=== PATIENT | male | born 1970 | race Caucasian/White ===

== ENCOUNTER → 2023-01-14 09:01 | Outpatient (CLI) | payer OTHER, SELFPAY ==
[2023-01-14 20:14] LABS: Alanine Aminotransferase 33 IU/L (<50); Albumin Globulin Ratio 1.4 (1.0-2.8); Alkaline Phosphatase 88 U/L (38-126); Aspartate Aminotransferase 37 IU/L (17-59); BUN Creatinine Ratio 19.2 (6-22); Bilirubin Total 0.9 mg/dL (0.2-1.3); Blood Urea Nitrogen 15 mg/dL (9-20); Calcium 8.8 mg/dL (8.4-10.2); Carbon Dioxide 29 mmol/L (22-32); Chloride 105 mmol/L (98-107); Cholesterol 142 mg/dL (140-199); Estimated Glomerular Filt Rate > 60 mL/min (>60); Globulin 2.8 g/dL (1.7-4.1); Glucose 93 mg/dL (70-100); HDL Cholesterol 50 mg/dL (40-60); LDL Cholesterol Calculated 82 mg/dL (<100); Potassium 4.4 mmol/L (3.4-5.1); Sodium 140 mmol/L (137-145); Total Protein 6.8 g/dL (6.3-8.2); Triglycerides 51 mg/dL (35-150)
[2023-01-14 20:21] LABS: Add Manual Diff / Slide Review NO; Basophils Absolute Auto 0 /uL (0-100); Basophils Percent Auto 0.5 % (0-2); Eosinophils Absolute Auto 200 /uL (0-450); Eosinophils Percent Auto 3.3 % (2-4); Hemoglobin 14.1 g/dL (13.5-17.5); Lymphocytes Absolute Auto 1200 /uL (1100-4500); Lymphocytes Percent Auto 25.1 % (25-40); Mean Corpuscular HGB Conc 33.6 % (30-36); Mean Corpuscular Hemoglobin 29.8 PG (26-34); Mean Corpuscular Volume 88.9 fL (80-100); Monocytes Absolute Auto 500 /uL (0-900); Monocytes Percent Auto 9.9 % (3-14); Neutrophils Absolute Auto 3000 /uL (1500-7000); Neutrophils Percent Auto 61.2 % (50-75); Platelet Count 201 X10^3/uL (150-400); Red Blood Cell Count 4.73 X10^6/uL (4.5-5.9); Red Cell Distribution Width 13.9 % (11.6-14.8); White Blood Cell Count 4.9 X10^3/uL (4.5-11.0)
[2023-01-14 20:48] LABS: TSH w/ Reflex to FT4 0.96 uIU/mL (0.47-4.68)
[2023-01-14 22:01] LABS: HEMOLYSIS < 15 (0-50); Prostate Specific Antigen 0.628 ng/mL (0.10-4.00)
== END ==
PROVIDERS: PCP Physician Assistant Medical; Visit Provider Physician Assistant Medical
DX: Z12.5 Encounter for screening for malignant neoplasm of prostate (principal); Z13.0 Encounter for screening for diseases of the blood and blood-forming organs and certain disorders involving the immune mechanism; Z13.220 Encounter for screening for lipoid disorders; Z13.228 Encounter for screening for other metabolic disorders; Z13.29 Encounter for screening for other suspected endocrine disorder
CPT/HCPCS: 80053; 80061; 84153; 84443; 85025

== ENCOUNTER → 2023-11-11 08:59 | Outpatient (CLI) | payer OTHER, SELFPAY ==
[2023-11-11 19:30] LABS: Add Manual Diff / Slide Review NO; Basophils Absolute Auto 0 /uL (0-100); Basophils Percent Auto 0.2 % (0-2); Eosinophils Absolute Auto 100 /uL (0-450); Eosinophils Percent Auto 2.8 % (2-4); Hematocrit 42.3 % (41-53); Hemoglobin 14.3 g/dL (13.5-17.5); Lymphocytes Absolute Auto 1300 /uL (1100-4500); Lymphocytes Percent Auto 27.2 % (25-40); Mean Corpuscular HGB Conc 33.7 % (30-36); Mean Corpuscular Hemoglobin 30.3 PG (26-34); Monocytes Absolute Auto 500 /uL (0-900); Monocytes Percent Auto 10.4 % (3-14); Neutrophils Absolute Auto 2700 /uL (1500-7000); Neutrophils Percent Auto 59.4 % (50-75); Platelet Count 197 X10^3/uL (150-400); Red Cell Distribution Width 13.6 % (11.6-14.8); White Blood Cell Count 4.6 X10^3/uL (4.5-11.0)
[2023-11-11 19:35] LABS: Alanine Aminotransferase 26 IU/L (<50); Albumin 4.5 g/dL (3.5-5.0); Albumin Globulin Ratio 1.7 (1.0-2.8); Alkaline Phosphatase 82 U/L (38-126); Aspartate Aminotransferase 36 IU/L (17-59); BUN Creatinine Ratio 21.1 (6-22); Blood Urea Nitrogen 16 mg/dL (9-20); Calcium 9.6 mg/dL (8.4-10.2); Carbon Dioxide 30 mmol/L (22-32); Chloride 104 mmol/L (98-107); Cholesterol 127 mg/dL (140-199); Estimated Glomerular Filt Rate > 60 mL/min (>60); Globulin 2.7 g/dL (1.7-4.1); Glucose 87 mg/dL (70-100); HDL Cholesterol 54 mg/dL (40-60); HEMOLYSIS < 15 (0-50); LDL Cholesterol Calculated 66 mg/dL (<100); Magnesium 2.2 mg/dL (1.6-2.3); Potassium 4.3 mmol/L (3.4-5.1); Sodium 139 mmol/L (137-145); Total Protein 7.2 g/dL (6.3-8.2); Triglycerides 36 mg/dL (35-150)
[2023-11-11 20:02] LABS: TSH w/ Reflex to FT4 1.27 uIU/mL (0.47-4.68)
[2023-11-15 20:43] LABS: Fecal Immunochemical Test Negative (Negative)
== END ==
PROVIDERS: PCP Physician Assistant Medical; Visit Provider Family Medicine
DX: Z86.79 Personal history of other diseases of the circulatory system (principal); R00.1 Bradycardia, unspecified; I49.3 Ventricular premature depolarization; Z13.6 Encounter for screening for cardiovascular disorders; Z13.1 Encounter for screening for diabetes mellitus; R03.0 Elevated blood-pressure reading, without diagnosis of hypertension; Z12.5 Encounter for screening for malignant neoplasm of prostate; Z13.220 Encounter for screening for lipoid disorders; Z13.29 Encounter for screening for other suspected endocrine disorder; Z13.228 Encounter for screening for other metabolic disorders; Z13.0 Encounter for screening for diseases of the blood and blood-forming organs and certain disorders involving the immune mechanism
CPT/HCPCS: 80053; 80061; 82274; 83735; 84443; 85025

== ENCOUNTER → 2024-01-11 13:16 | Outpatient (CLI) | payer OTHER, SELFPAY ==
--- NOTE | 2024-01-11 13:17 | DI.US.S_ITS ---
PROCEDURE: US ABDOMEN LIMITED INDICATIONS: POSSIBLE INGUINAL VENTRAL HERNIAS TECHNIQUE: Real-time focused scanning was performed of the inguinal region, with image documentation. COMPARISON: None. FINDINGS: Superior to the umbilicus and to the right of midline, there is a 2.4 x 0.6 x 2.4 cm fat containing ventral hernia. At the right inguinal region, there is a 1.0 cm abdominal wall defect, through which there is a protruding 12.8 x 4.8 x 6.7 cm bowel loop. This finding is most conspicuous in the upright position with Valsalva maneuver. IMPRESSION: 1. Small, bowel and fat-containing right inguinal hernia. 2. Small fat-containing right paramidline ventral abdominal wall hernia. Dictated by: Aayush Tellez M.D. on 01/11/2024 at 15:51 Approved by: Aayush Tellez M.D. on 01/11/2024 at 15:56
== END ==
PROVIDERS: PCP Physician Assistant Medical; Referring Provider Physician Assistant Medical; Visit Provider Physician Assistant Medical
DX: K40.90 Unilateral inguinal hernia, without obstruction or gangrene, not specified as recurrent (principal); K43.9 Ventral hernia without obstruction or gangrene
CPT/HCPCS: 76705

== ENCOUNTER → 2024-01-11 13:17 | Outpatient (CLI) | payer OTHER, SELFPAY ==
--- NOTE | 2024-01-11 13:18 | DI.ECHO.S_ITS ---
[facility] : : [address] : : [place] : : [id number] : : Phone: [phone] Echocardiogram Report + + :Name: LIU HUERTA Study Date: 01/11/2024 Height: 73 in : :[facility] ReadingLocation: Weight: 230 lb : : Gender: Male BSA: 2.3 m2 : :: 1970 Age: 53 yrs BP: 146/92 mmHg: :Reason For Study: VENTRICULAR BIGEMINY : :Ordering Physician: LION, : :GABBI Performed By: Harjinder Ordaz : :Referring: GABBI ESYMOUR : + + Interpretation Summary The patient was in normal sinus rhythm during the exam. The heart rate ranged between 43-63 bpm during the study. The left ventricle is mildly dilated. The ejection fraction is estimated to be 50-55%. Diastolic function could not be accurately assessed due to contradictory data. The apex of the left ventricle and the right ventricular free wall appear hypertrabeculated. The right ventricle is mild to moderately dilated. The right ventricular systolic function is normal. Both atria are mildly dilated. There is mild to moderate mitral regurgitation. There is mild tricuspid regurgitation. The right ventricular systolic pressure is estimated to be at least 37 mmHg based on an estimated right atrial pressure of 8 mm Hg. Recommend cardiology evaluation to consider cardiac MRI. Procedure: A two-dimensional transthoracic echocardiogram with color flow and Doppler was performed. The study quality was technically adequate. There is no prior echocardiogram noted for this patient. The patient was in normal sinus rhythm during the exam. The heart rate ranged between 43-63 bpm during the study. Left Ventricle: The left ventricle is mildly dilated. The ejection fraction is estimated to be 50-55%. Diastolic function could not be accurately assessed due to contradictory data. The apex of the left ventricle and the right ventricular free wall appear hypertrabeculated. Right Ventricle: The right ventricle is mild to moderately dilated. The right ventricular systolic function is normal. Atria: Both atria are mildly dilated. The interatrial septum grossly appears intact with no obvious evidence for an atrial septal defect. Mitral Valve: The mitral valve is normal. There is no mitral valve stenosis. There is mild to moderate mitral regurgitation. Aortic Valve: The aortic valve is trileaflet. There is no aortic valve stenosis. There is trace aortic regurgitation. Tricuspid Valve: The tricuspid valve is normal. There is no tricuspid stenosis. There is mild tricuspid regurgitation. The right ventricular systolic pressure is estimated to be at least 37 mmHg based on an estimated right atrial pressure of 8 mm Hg. Pulmonic Valve: The pulmonic valve is not well visualized. There is no pulmonic valvular stenosis. There is no pulmonic valvular regurgitation. Great Vessels: The aortic root is normal size. The dimensions of the ascending aorta are normal. The IVC is dilated (diameter is greater than 2.1 cm) yet it collapses greater than 50% with a sniff. This suggests a right atrial pressure of 8 mm Hg. Pericardium/ Pleura There is no pericardial effusion. There is no pleural effusion. MMode/2D Measurements & Calculations LVIDd: 6.1 cm LVOT diam: 2.5 cm LVIDs: 4.8 cm Ao root diam: 3.2 cm FS: 20.7 % asc Aorta Diam: 3.4 cm IVSd: 0.88 cm Ao Arch Diam (Prox Trans): 2.6 cm LVPWd: 0.88 cm LV burnett. diameter/BSA (cm/m^2): 2.7 LV sys. diameter/BSA (cm/m^2): 2.1 LA A2 area: 29.0 cm2 RA long axis: 6.0 cm LA A4 area: 21.2 cm2 RA area: 25.3 cm2 LA length (vol): 5.8 cm RA vol: 91.0 ml LA vol: 90.0 ml RA : 39.8 ml/m2 LA vol index: 39.4 ml/m2 IVC diam: 2.3 cm RVD1 (basal): 4.8 cm RVD2 (mid): 4.2 cm TAPSE: 2.3 cm Doppler Measurements & Calculations Ao V2 max: 148.4 cm/sec LVOT Max Thomas: 89.7 cm/sec Ao V2 mean: 106.7 cm/sec LV V1 max P.2 mmHg Ao max P.8 mmHg LV V1 VTI: 21.4 cm Ao mean P.0 mmHg EMMA(I,D): 2.7 cm2 Ao V2 VTI: 37.4 cm EMMA(V,D): 2.9 cm2 sev ratio: 0.57 EMMA indexed to BSA (cm^2/m^2): 1.2 MV E max thomas: 65.9 cm/sec TR max thomas: 270.7 cm/sec MV A max thomas: 43.6 cm/sec TR max P.3 mmHg MV E/A: 1.5 PA V2 max: 111.8 cm/sec Med Peak E' Thomas: 9.2 cm/sec PA V2 mean: 73.8 cm/sec E/E' med: 7.1 PA mean P.5 mmHg Lat Peak E' Thomas: 12.6 cm/sec PA pr(Accel): 31.0 mmHg E/E' lat: 5.2 E/e' average: 6.2 MV dec time: 0.18 sec SV(LVOT): 102.6 ml Reading Physician:03:45 PM
== END ==
PROVIDERS: PCP Physician Assistant Medical; Referring Provider Internal Medicine Cardiovascular Disease; Visit Provider Internal Medicine Cardiovascular Disease
DX: I49.8 Other specified cardiac arrhythmias (principal); I08.1 Rheumatic disorders of both mitral and tricuspid valves
CPT/HCPCS: 76705; 93306

== ENCOUNTER 2024-06-28 11:18 | Day surgery (SDC) | payer OTHER, SELFPAY ==
--- NOTE | 2024-06-28 | PATH_ITS ---
[facility] Accession Number: [id number] No. of containers..01 Tissue . 01 Material submitted: . colon - DESCENDING COLON POLYP . 01 Diagnosis: DESCENDING COLON POLYP: Tubular adenoma. [facility] 06/30/2024 1538 Local . 01 Electronically signed: . Josh Dc MD, Pathologist NPI- [id number] . 01 Gross description: . Received in formalin with two patient identifiers and descending colon polyp, is a single lloyd and brown soft tissue fragment, 1.3 cm in greatest dimension, submitted in A1. ([id number]) /MRV 06/30/2024 1538 Local . 01 Pathologist provided ICD-10: D12.4 . 01 CPT . 868904 Specimen Comment: A courtesy copy of this report has been sent to [facility] Pathology Performed at: 01 [facility] [address] [address], [place], [place] [id number] MD Josh Dc MD Phone: [phone]
[2024-06-28 11:42] VITALS: BP 127/78; PULSE 71; RESP 18; TEMP 36.7; O2SAT 99
--- NOTE | 2024-06-28 12:20 | P.HP_ITS ---
History of Present Illness History of Present Illness Date Patient Seen: 06/28/24 Time Patient Seen: 12:20 Chief complaint: Colonoscopy Narrative: 53-year-old white male, otherwise healthy, presents for initial screening colonoscopy. No blood in stool, no changes in bowel habits or unexplained weight loss. [facility] Medical History Incarcerated ventral hernia Incarcerated right inguinal hernia Wears glasses Seborrheic dermatitis (~1999) Eczema (~2015) AC separation, type 3 (~2004) ADHD (~1971) Tinnitus (~1980) Atrial fibrillation (~2002) Social History Smoking Status: Current some day smoker alcohol intake: current Meds Home Medications and Allergies Home Medications Medication Instructions Recorded Confirmed Type No Known Home Medications 06/28/24 06/28/24 History Allergies Allergy/AdvReac Type Severity Reaction Status Date / Time No Known Drug Allergies Allergy Verified 06/28/24 11:36 Review of Systems Review of Systems ROS: Yes All systems reviewed with the patient and are negative except as otherwise documented Exam Vital Signs (past 8 hours): - 06/28/24 11:42 Temperature 98.0 F Pulse Rate 71 Respiratory Rate 18 Blood Pressure 127/78 Pulse Oximetry 99 Oxygen Delivery Method Room Air Oxygen Delivery Method Room Air Narrative Exam Narrative: Gen: NAD, sitting comfortably in bed, appears well HEENT: Sclera are anicteric, head is normocephalic and atraumatic, trachea is midline. CV: RRR, no JVD Resp: clear to auscultation bilaterally, equal chest wall movement bilaterally Abd: soft, nontender, normoactive bowel sounds. Reducible right inguinal hernia, reducible ventral hernia Ext: no edema, full range of motion Neuro: Cranial nerves II-XII grossly intact, no focal deficits Skin: No erythema or ecchymosis Assessment & Plan Assessment and plan (1) Colon cancer screening: Status: Acute (2) Incarcerated right inguinal hernia: Status: Acute (3) Incarcerated ventral hernia: Status: Acute Assessment & Plan narrative: Patient presents for initial screening colonoscopy Risks, benefits, alternatives to colonoscopy explained, including but not limited to bowel perforation or other serious complication requiring surgery at less than 1 in 5000 colonoscopies, abdominal pain, cramping or bleeding and less than 1% of colonoscopies, and the chances that we find a diagnosis that would require further intervention of about 2%. Patient agrees to proceed. Plan for elective repair of right inguinal hernia and ventral hernia with mesh within the coming month. To be scheduled. Time-Based Coding :: [TOTAL MINUTES] spent with patient and on the chart (including review of chart, obtaining history, exam, reviewing outside data, placing orders, documenting exam and treatment plan, and counseling patient) on [DATE].
--- NOTE | 2024-06-28 12:44 | PM.OP.COLON ---
Operative Date/Time/Diagnoses Date of procedure: 06/28/24 Time of procedure: 12:44 Pre-op diagnosis: Colon screening Post-op diagnosis: same (Descending colon polyp) Procedure & Clinicians Study performed: Colonoscopy with snare polypectomy Same procedure as scheduled: Yes Indications: Colon screening Surgeon: Amador Sosa Procedure Notes SCOAP/Timeout: Performed Procedure in detail: Time-out was performed. Mac was induced. Patient was placed in left lateral decubitus position. The perineum was inspected without any gross abnormality. Lubricated pediatric colonoscope was inserted and advanced to the cecum. The terminal ileum was intubated. The colonoscope was withdrawn slowly inspecting the circumference of the colon. A small, 5 mm descending colon polyp was removed with cold snare polypectomy. This was retrieved completely. Very small polyps may have been missed, prep quality was adequate. Retroflexed view of the rectum showed small, non prolapsed nonbleeding internal hemorrhoids. The scope was withdrawn the patient was taken to PACU in good condition. Scope withdrawal time: 8 Sedation minutes: 12 Findings: polyp(s) Specimen(s): other (Descending colon polyp) Complications: none Impression: Descending colon polyp Post-procedure Recommendations: Colonoscopy in 5 years (Next colonoscopy in 5-7 years) Plan for aftercare: Home Follow up: as needed Disposition: PACU
[2024-06-28 12:46] VITALS: BP 96/57; PULSE 61; RESP 12; TEMP 36.3; O2SAT 96
[2024-06-28 12:51] VITALS: BP 102/56; PULSE 54; RESP 13; O2SAT 96
[2024-06-28 12:56] VITALS: BP 106/66; PULSE 63; RESP 11; O2SAT 96
[2024-06-28 13:05] VITALS: BP 112/68; PULSE 68; RESP 11; TEMP 36.3; O2SAT 98
== END 2024-06-28 13:30 | disposition home or self-care (01) ==
PROVIDERS: PCP Physician Assistant Medical; Referring Provider Surgery; Visit Provider Surgery
PROC: 0DJD8ZZ Inspection of Lower Intestinal Tract, Via Natural or Artificial Opening Endoscopic (ICD-10-PCS; CPT 45378; principal; 2024-06-28 12:30)
DX: Z12.11 Encounter for screening for malignant neoplasm of colon (principal); K64.8 Other hemorrhoids; D12.4 Benign neoplasm of descending colon
CPT/HCPCS: 45385; J2704

== ENCOUNTER → 2024-10-11 09:04 | Outpatient (CLI) | payer OTHER, SELFPAY ==
[2024-10-11 18:51] LABS: Hematocrit 46.6 % (41-53); Hemoglobin 15.5 g/dL (13.5-17.5); Mean Corpuscular HGB Conc 33.2 % (30-36); Mean Corpuscular Hemoglobin 30.2 PG (26-34); Mean Corpuscular Volume 90.9 fL (80-100); Platelet Count 193 X10^3/uL (150-400); Red Blood Cell Count 5.13 X10^6/uL (4.5-5.9); Red Cell Distribution Width 14.4 % (11.6-14.8)
[2024-10-11 19:16] LABS: Alanine Aminotransferase 39 IU/L (<50); Albumin 4.6 g/dL (3.5-5.0); Albumin Globulin Ratio 1.8 (1.0-2.8); Alkaline Phosphatase 68 U/L (38-126); Aspartate Aminotransferase 43 IU/L (17-59); BUN Creatinine Ratio 20.2 (6-22); Blood Urea Nitrogen 17 mg/dL (9-20); Calcium 9.5 mg/dL (8.4-10.2); Carbon Dioxide 29 mmol/L (22-32); Chloride 104 mmol/L (98-107); Cholesterol 167 mg/dL (140-199); Estimated Glomerular Filt Rate > 60 mL/min (>60); Globulin 2.6 g/dL (1.7-4.1); Glucose 94 mg/dL (70-100); HDL Cholesterol 53 mg/dL (40-60); HEMOLYSIS 17 (0-50); LDL Cholesterol Calculated 96 mg/dL (<100); Potassium 4.7 mmol/L (3.4-5.1); Sodium 141 mmol/L (137-145); Total Protein 7.2 g/dL (6.3-8.2); Triglycerides 92 mg/dL (35-150)
[2024-10-11 19:47] LABS: Prostate Specific Antigen Scrn 0.688 ng/mL (0.1-4.0)
== END ==
PROVIDERS: PCP Physician Assistant Medical; Visit Provider Physician Assistant Medical
DX: Z13.1 Encounter for screening for diabetes mellitus (principal); Z13.6 Encounter for screening for cardiovascular disorders; R39.11 Hesitancy of micturition; Z12.5 Encounter for screening for malignant neoplasm of prostate
CPT/HCPCS: 80053; 80061; 85027; G0103

== ENCOUNTER → 2025-01-09 09:04 | Outpatient (CLI) | payer OTHER, SELFPAY ==
[2025-01-09 21:06] LABS: Add Manual Diff / Slide Review NO; Hematocrit 44.0 % (41-53); Hemoglobin 14.8 g/dL (13.5-17.5); Lymphocytes Absolute Auto 1200 /uL (1100-4500); Mean Corpuscular HGB Conc 33.5 % (30-36); Mean Corpuscular Hemoglobin 30.5 PG (26-34); Mean Corpuscular Volume 90.9 fL (80-100); Platelet Count 189 X10^3/uL (150-400)
== END ==
PROVIDERS: PCP Physician Assistant Medical; Visit Provider Physician Assistant Medical
DX: D72.9 Disorder of white blood cells, unspecified (principal)
CPT/HCPCS: 85025

== ENCOUNTER → 2025-06-30 13:20 | Outpatient (CLI) | payer OTHER, SELFPAY ==
--- NOTE | 2025-06-30 13:21 | DI.MRI.S_ITS ---
PROCEDURE: MR LUMBAR SPINE WO CON INDICATIONS: increasing numbness in LE L>R TECHNIQUE: Noncontrast sagittal T1 spin echo and T2 fast echo, sagittal STIR, and T2 fast spin echo through the lumbar spine. In cases with scoliosis, additional coronal T2 fast spin echo may be performed. COMPARISON: [facility] ([place]), CR, XR LUMBAR SPINE 2- 3V, 05/23/2025, 15:37. FINDINGS: Image quality: Excellent. Alignment and Curvature: There is normal bony alignment. Bone Marrow: Marrow is of normal overall signal. No acute vertebral body compression fractures. Spinal Cord: Conus medullaris terminates at the L1 level. Visualized cord demonstrates normal signal and size. Paraspinous Soft Tissues: No paravertebral masses. T12-L1: There is near complete loss of disc height and extensive disc desiccation. Diffuse disc bulge and bilateral facet arthrosis. No significant central canal stenosis or neural foraminal narrowing. L1-L2: Bilateral facet arthrosis is seen. No significant disc bulge, canal stenosis or neural foraminal narrowing. L2-L3: There is disc desiccation. Diffuse disc bulge and bilateral facet arthrosis with mild central canal stenosis and mild bilateral neural foraminal narrowing. L3-L4: Disc desiccation and loss of disc height. Diffuse disc bulge and bilateral facet arthrosis with hypertrophy of ligamentum flavum causing mild central canal stenosis and moderate right-sided neural foraminal narrowing. Mild left-sided neural foraminal narrowing is also seen. L4-L5: There is loss of disc height and disc desiccation. Broad-based disc bulge and bilateral facet arthrosis with [id number] central canal stenosis and moderate right worse than left bilateral neural foraminal narrowing. Bulging disc likely contacting bilateral L4 nerve roots. L5-S1: There is loss of disc height and disc desiccation. Broad-based disc bulge and bilateral facet arthrosis with mild central canal stenosis, moderate left worse than right bilateral neural foraminal narrowing. Bulging disc likely contacting bilateral L5 nerve roots. IMPRESSION: 1. No marrow edema. No acute vertebral body compression fracture or significant spondylolisthesis. 2. Spondylitic changes throughout lumbar spine causing various degrees of central canal stenosis and bilateral neural foraminal narrowing as described above. Dictated by: Vaibhav Ayala M.D. on 07/02/2025 at 10:09 Approved by: Vaibhav Ayala M.D. on 07/02/2025 at 10:13
== END ==
LOC: MRI 13:21
PROVIDERS: PCP Physician Assistant Medical; Referring Provider Physician Assistant Medical; Visit Provider Physician Assistant Medical
DX: M47.26 Other spondylosis with radiculopathy, lumbar region (principal); M48.02 Spinal stenosis, cervical region
CPT/HCPCS: 72148